=== PATIENT | male | born 1995 | race Two or more races ===

== ENCOUNTER 2022-03-01 19:24 | Inpatient (IN) | payer BC, OTHER ==
[~2022-03-01] VITALS: Ht 167.6 cm; Wt 56.7 kg
[~2022-03-01 19:24] MED LIST: PANT40TA2 PO
--- NOTE | 2022-03-01 19:33 | NUR ---
MAGUI FROM THE STREETS C/O "BEING THIRSTY" AFTER 5DAYS OF FENTANYL USE. BS 100 AT THE SCENE. PATIENT ALERT AND ORIENTED X3 AMBULATORY WITH NON LABORED BREATHING IN BED 13 ON MONITOR. AWAITING MD WOLF.
[2022-03-01] MEDS ORDERED: ONDANSETRON HCL/PF 4 MG/2 ML VIAL ONE (19:59)
[2022-03-01] MEDS ORDERED: ONDANSETRON HCL/PF - ER 4 MG/2 ML VIAL IV ONE (20:00)
[2022-03-01] MEDS ORDERED: CLONIDINE HCL 0.1MG/24H PTWK 1 EA PATCH TD SCH (20:00)
[2022-03-01] MEDS ORDERED: IV NS 0.9% 1,000 ML BAG IV ONE ×2 (20:00)
--- NOTE | 2022-03-01 20:00 | NUR ---
20G IV LINE AT [facility]. BLOOD DRAWN AND SENT TO LAB. UNABLE TO GIVE URINE AT THIS TIME
[2022-03-01 20:18] LABS: CALCIUM, SERUM 10.8 mg/dL (8.5-10.1); CREATININE 1.9 mg/dL (0.6-1.3); POTASSIUM 3.5 mmol/L (3.5-5.1)
[2022-03-01 20:23] LABS: ALBUMIN 4.6 g/dL (3.4-5.0); BILIRUBIN,DIRECT 0.2 mg/dL (0.0-0.2); BILIRUBIN,TOTAL 0.7 mg/dL (0.2-1.0); TOTAL PROTEIN, SERUM 9.9 g/dL (6.4-8.2)
[2022-03-01 20:30] LABS: BASOPHILS % (AUTO) 0.1 % (0.0-2.0); HEMATOCRIT 57 % (39-51); LYMPHOCYTES # (AUTO) 1.3 K/uL (0.8-4.8); LYMPHOCYTES % (AUTO) 6.1 % (20.0-44.0); MEAN CORPUSCULAR HGB CONC 35 g/dl (31.0-36.0); MEAN CORPUSCULAR VOLUME 79 fL (80-96); MONOCYTES % (AUTO) 9.5 % (2.0-12.0); NEUTROPHILS # (AUTO) 17.9 K/uL (1.8-8.9); NEUTROPHILS % (AUTO) 84.3 % (43.0-81.0); PLATELET COUNT (AUTO) 479 K/uL (150-450); RED BLOOD CELL COUNT(AUTO) 7.19 MIL/uL (4.5-6.0); WHITE BLOOD COUNT (AUTO) 21.2 K/uL (4.3-11.0)
[2022-03-01 20:33] LABS: HEMOGLOBIN 19.9 g/dL (13.5-17.5)
[2022-03-01 21:00] LABS: LYMPHOCYTES % (MANUAL) 10 % (16-48); MONOCYTES % (MANUAL) 9 % (0-11.0); NEUTROPHILS % (MANUAL) 81 (42-76)
--- NOTE | 2022-03-01 21:24 | NUR ---
PT STILL UNABLE TO GIVE URINE AT THIS TIME
[2022-03-01] MEDS ORDERED: PROCHLORPERAZINE EDISYLATE 10 MG/2 ML VIAL ONE (21:25)
[2022-03-01 21:30] LABS: ABG BASE EXCESS 5.5 mmol/L; ABG PCO2 47.9 mmHg (35.0-45.0); ABG PH 7.431 (7.350-7.450); ABG PO2 32.8 mmHg (75.0-100.0); COHb 0.5 % (0.5-1.5); MetHb 0.2 % (0.0-1.5); O2Hb 67.9 % (94.0-97.0); SITE, ABG Right Brachial; VENT MODE, BG ROOM AIR
[2022-03-01] MEDS ORDERED: PROCHLORPERAZINE EDISYLATE 10 MG/2 ML VIAL IVP ONE (21:30)
[2022-03-01] MEDS ORDERED: MORPHINE SULFATE INJ 2 MG/ML DISP.SYRIN IV PRN (22:00)
[2022-03-01] MEDS ORDERED: ONDANSETRON HCL/PF 4 MG/2 ML VIAL IVP PRN (22:00)
[2022-03-01] MEDS ORDERED: ACETAMINOPHEN 325 MG TABLET PO PRN (22:00)
--- NOTE | 2022-03-01 22:13 | NUR ---
PT STILL UNABLE TO GIVE URINE AT THIS TIME. REFUSES CATHETER.
--- NOTE | 2022-03-01 22:39 | NUR ---
urine collected and sent to lab
[2022-03-01] MEDS: IV NS 0.9% 1,000 ML IV SCH (22:43)
[2022-03-01 22:53] LABS: BILIRUBIN,URINE SMALL (NEGATIVE); COLOR,URINE YELLOW (YELLOW); LEUKOCYTE ESTERASE ,URINE NEGATIVE (NEGATIVE); NITRITE, URINE NEGATIVE (NEGATIVE); PROTEIN,URINE TRACE mg/dl (NEGATIVE); UGLUCOSE NEGATIVE (NEGATIVE); UROBILINOGEN,URINE 0.2 EU/dL (0.2)
--- NOTE | 2022-03-01 23:00 | NUR ---
AUTOMOTIVE GLASS INSTALLER AT BEDSIDE
--- NOTE | 2022-03-01 23:20 | NUR ---
LACTIC ACID 2.6
[2022-03-02 00:49] LABS: MAGNESIUM 2.7 mg/dL (1.8-2.4); PHOSPHORUS 5.2 mg/dL (2.5-4.9)
--- NOTE | 2022-03-02 00:49 | NUR ---
ROOM 321-2 TELE
--- NOTE | 2022-03-02 01:02 | NUR ---
REPORT GIVEN TO EDISON
[2022-03-02 02:25] VITALS: BP 135/86
--- NOTE | 2022-03-02 02:27 | NUR ---
PATIENT TRANSFERRED TO [facility] VIA ACLS
--- NOTE | 2022-03-02 02:32 | NUR ---
ADMISSION 26 y/o young male admitted for Dehydration. Patient is Alert Oriented x3, appears weak. Skin intact, no pressure injury. [place] to room, unit, staff. Education on Fall prevention, use of call light, bed alarm and nonslip socks, patient verbalized understanding. Addendum: 03/02/22 at 0344 by EDISON RIVERA RN ADMISSION NOTES CONTINUED BELOW Unable to obtained Hx. patient with intermittent confusion, lethargic.
[2022-03-02] MEDS: PANTOPRAZOLE 40 MG VIAL IV SCH ×3 (02:51→16:35)
[2022-03-02] MEDS: HEPARIN SODIUM, PORCINE 5000 UNITS/1 ML VIAL SQ SCH ×3 (02:55→20:27)
--- NOTE | 2022-03-02 02:58 | NUR ---
ANTICOAGULANT H/H 19.9/57 PLT 479 No symptoms of bleeding. Heparin injection co-signed by TABITHA Middleton
[2022-03-02] MEDS: IV NS 0.9% 1,000 ML IV SCH ×2 (03:02→07:56)
[2022-03-02 03:11] VITALS: BP 135/86
[2022-03-02 04:22] VITALS: BP 131/86
[2022-03-02 06:08] LABS: BASOPHILS % (AUTO) 0.1 % (0.0-2.0); HEMATOCRIT 46 % (39-51); HEMOGLOBIN 15.6 g/dL (13.5-17.5); LYMPHOCYTES # (AUTO) 1.8 K/uL (0.8-4.8); LYMPHOCYTES % (AUTO) 9.4 % (20.0-44.0); MEAN CORPUSCULAR HGB CONC 34 g/dl (31.0-36.0); MEAN CORPUSCULAR VOLUME 80 fL (80-96); MONOCYTES # (AUTO) 2.3 K/uL (0.1-1.30); MONOCYTES % (AUTO) 12.2 % (2.0-12.0); NEUTROPHILS # (AUTO) 14.8 K/uL (1.8-8.9); NEUTROPHILS % (AUTO) 78.3 % (43.0-81.0); PLATELET COUNT (AUTO) 330 K/uL (150-450); RED BLOOD CELL COUNT(AUTO) 5.69 MIL/uL (4.5-6.0); WHITE BLOOD COUNT (AUTO) 18.8 K/uL (4.3-11.0)
[2022-03-02 06:33] LABS: ALBUMIN 3.2 g/dL (3.4-5.0); BILIRUBIN,TOTAL 0.7 mg/dL (0.2-1.0); CALCIUM, SERUM 8.2 mg/dL (8.5-10.1); CREATININE 0.9 mg/dL (0.6-1.3); MAGNESIUM 2.2 mg/dL (1.8-2.4); POTASSIUM 3.2 mmol/L (3.5-5.1); TOTAL PROTEIN, SERUM 6.6 g/dL (6.4-8.2)
--- NOTE | 2022-03-02 07:15 | NUR ---
MS RN OPENING NOTES PATIENT IN BED, ALERT ORIENTED X 2-3. NO ACUTE DISTRESS NOTED. BREATHING UNLABORED. DENIED ANY PAIN. NEEDS ATTENDED AND ANTICIPATED. SAFETY MEASURES IN PLACE. CALL LIGHT WITHIN REACH. WILL CONTINUE TO MONITOR ACCORDINGLY
--- NOTE | 2022-03-02 07:23 | NUR ---
END OF SHIFT REPORT Patient is Alert Oriented x2, lethargic at times. Sinus Rhythm in the Tele monitor HR 63. On room air, maintaining Oxygenation 100%. IV fluids infusing. Fall precaution maintained. Bed alarm on and audible. CM/services clerk consult, patient is homeless and Hx. Fentanyl use, last use 5 days ago. Will endorse to oncoming RN.
--- NOTE | 2022-03-02 09:33 | NUR ---
HEPARIN NON ADMINISTERED AT THIS TIME , ALREADY GIVEN EARLIER NEXT DOSE TONIGHT AT 2100
[2022-03-02] MEDS ORDERED: POTASSIUM CHLORIDE 20 MEQ TAB.PRT.SR PO SCH (10:00)
[2022-03-02] MEDS ORDERED: IV NS 0.9% 1,000 ML IV PRN (10:06)
--- NOTE | 2022-03-02 12:11 | NUR ---
SS Note: SS consult requested for Fentanyl use. SW attempted to met with pt. at bedside. The pt. is alert and appears unkempt, with irritable mood & affect. Pt. requested that SW conduct interview at a later time. SW will follow up later.
[2022-03-02] MEDS: Potassium Chloride 20 MEQ in IV NS 0.9% 1,000 ML IV SCH ×2 (16:27→23:33)
--- NOTE | 2022-03-02 18:54 | NUR ---
MS RN OPENING NOTES PATIENT IN BED, ALERT ORIENTED X 2-3. NO ACUTE DISTRESS NOTED. BREATHING UNLABORED. DENIED ANY PAIN.NEEDS ATTENDED AND ANTICIPATED. SAFETY MEASURES IN PLACE. CALL LIGHT WITHIN REACH. WILL ENDORSE TO NIGHT NURSE FOR CONTINUITY OF CARE
--- NOTE | 2022-03-02 19:30 | NUR ---
AUGER SUPERVISOR OPENING NOTES RECEIVED PATIENT LYING IN BED WITH EYES CLOSED. EASY TO AROUSE. A/O X3. NO SOB OR NOTED. TOLERATING ROOM AIR WELL. NO C/O PAIN AT THIS TIME. APPEARS TO BE WEAK AND WITHDRAWN. DINNER TRAY STILL ON BEDSIDE, PATIENT HAS NOT EATEN YET. ENCOURAGED PO INTAKE. HAS RIGHT AC IV ACCESS #20G WITH KCL 20MEQ IN NS RUNNING AT 125 ML/HR. NO S/S OF INFILTRATION NOTED. SAFETY PRECAUTIONS IN PLACE. WILL CONTINUE PLAN OF CARE.
[2022-03-02 19:39] VITALS: BP 141/80
[2022-03-02 20:00] VITALS: BP 141/80
[2022-03-02 23:46] VITALS: BP 119/67
[2022-03-03] VITALS (9 sets, daily range): BP systolic 93–125; BP diastolic 53–80
--- NOTE | 2022-03-03 07:10 | NUR ---
HIDE COOKING OPERATOR CLOSING NOTES PATIENT LYING IN BED WITH EYES CLOSED. ASLEEP THROUGHOUT THE NIGHT. RESPONSIVE TO VERBAL AND TACTILE STIMULI. A/O X3. VS WNL. STABLE ON ROOM AIR. NO APPARENT DISTRESS NOTED. NO C/O PAIN AT THIS TIME. ON TELE MONITOR READING SINUS RHYTHM AT 64 BPM. HAS RIGHT AC IV ACCESS #20G WITH KCL 20MEQ IN NS RUNNING AT 125 ML/HR. INTACT, PATENT AND FLUSHING. CLEAR AND BEV URINE OUTPUT OF 600 ML. SAFETY PRECAUTIONS IN PLACE: BED LOW AND LOCKED, BED ALARM ON, SIDE RAILS UP X2, CALL LIGHT WITHIN REACH.
--- NOTE | 2022-03-03 07:35 | NUR ---
RN OPENING NOTE PATIENT RECEIVED IN BED SLEEPING, ABLE TO RESPONDS ALL STIMULI. IN NO ACUTE DISTRESS NOTED. RESPIRATORY EVEN AND UNLABORED ON ROOM. SKIN IS WARM TO TOUCH, KEEP CLEAN/DRY, INTACT IV SITE. KEPT ELEVATED HOB FOR ENSURE AIRWAY AND ASPIRATION PRECAUTION, ALSO LOWEST POSITION OF THE BED, S/R UP X 2, ALL SAFETY PRECAUTION APPLIED. CALL LIGHT WITHIN REACH, WILL CONTINUE TO MONITOR.
[2022-03-03] MEDS: Potassium Chloride 20 MEQ in IV NS 0.9% 1,000 ML IV SCH ×2 (07:57→16:35)
[2022-03-03] MEDS: PANTOPRAZOLE 40 MG VIAL IV SCH (09:23)
[2022-03-03] MEDS: HEPARIN SODIUM, PORCINE 5000 UNITS/1 ML VIAL SQ SCH ×2 (09:26→21:00)
--- NOTE | 2022-03-03 10:44 | NUR ---
SW attempted to interview pt. Pt. would not answer questions and would nod "yes" to every question. SW will come back at a later time once pt. is more oriented.
[2022-03-03 10:54] LABS: BASOPHILS % (AUTO) 0.3 % (0.0-2.0); EOSINOPHILS % (AUTO) 0.3 % (0.0-6.0); HEMATOCRIT 39 % (39-51); HEMOGLOBIN 13.1 g/dL (13.5-17.5); LYMPHOCYTES # (AUTO) 3.2 K/uL (0.8-4.8); LYMPHOCYTES % (AUTO) 26.7 % (20.0-44.0); MEAN CORPUSCULAR HGB CONC 34 g/dl (31.0-36.0); MEAN CORPUSCULAR VOLUME 82 fL (80-96); MONOCYTES # (AUTO) 1.2 K/uL (0.1-1.30); MONOCYTES % (AUTO) 10.5 % (2.0-12.0); NEUTROPHILS # (AUTO) 7.3 K/uL (1.8-8.9); NEUTROPHILS % (AUTO) 62.2 % (43.0-81.0); PLATELET COUNT (AUTO) 235 K/uL (150-450); RED BLOOD CELL COUNT(AUTO) 4.74 MIL/uL (4.5-6.0); WHITE BLOOD COUNT (AUTO) 11.8 K/uL (4.3-11.0)
[2022-03-03 11:24] LABS: ALBUMIN 2.7 g/dL (3.4-5.0); BILIRUBIN,TOTAL 0.5 mg/dL (0.2-1.0); CALCIUM, SERUM 7.9 mg/dL (8.5-10.1); CREATININE 0.5 mg/dL (0.6-1.3); POTASSIUM 4.1 mmol/L (3.5-5.1); TOTAL PROTEIN, SERUM 5.6 g/dL (6.4-8.2)
--- NOTE | 2022-03-03 13:47 | NUR ---
SS Note: SW followed-up with pt. regarding substance abuse and homelessness. Pt. is still refusing to answer questions. Pt. would just nod "yes" to every question that is being asked. SW provided and educated pt. with addiction and skilled nursing resources. SW left resources at bedside. Resources Provided: [facility]: [address] [place] [address] Intake hours: 5:45am9:00am, walk-ins Sunday, Sunday, [facility]: [address] [place] [address] Intake hours: 5:45am12:30pm, Sunday and [facility]: [address] [place] [address] Intake hours: 8:00am2:00pm, Sunday through Sunday Year-round shelters: [place] [address], [place] [address] ; [facility] [place] [address] [place] [address]; [facility] [id number] [facility] [address] Winter Shelters: Dima Dial Provider: [facility] [place] Address: [address] [place], [address] # of Beds: 47 Population Served: [facility] 6 | [facility] Yesenia Cortez [place] Provider: [facility] Address: [address], [address] # of Beds: 66 Population Served: [facility] Drug Response Dx [place] Provider: First to Serve Address: [address] [facility], [address] # of Beds: 56 Population Served: [facility] Kip [place] Provider: /[facility] Address: [address] [facility], [address] # of Beds: 49 Population Served: [facility] 8 | [facility] Provider: First to Serve Address: [address] [place] [address], [address] # of Beds: 37 Population Served: [facility] Hy[facility]: [facility]: [address] [place] ; [facility] [address] [facility] ; [facility] [address], [place] . Food Resources: [place] [facility] at [facility]- [address] [place]; Meet Each Need with Dignity ([facility]) [address] [facility]; [facility] [address] [facility]; [facility] [address] [facility]. Mental Health resources provided: [facility] [address] [place], [place] [address] ; [facility] [address] [facility] [address], [place], [place] [id number] ; [facility] [address] [place], [place] [id number] ; [facility] [address] [place], [place] [address] Healthcare Clinics: [facility] [address] [facility], [address] [place]. [place] ; [facility] [address] [facility] [address] [place] [id number]; [facility] [place] [address] [facility]. [place] [phone] Counseling--Outpatient [facility] [place] [address] [facility], [place] [address] (Specializes in in-depth psychotherapy for emotional distress: anxiety, depression, interpersonal conflicts, life transitions, childhood abuse) [facility] [address] [place], [place] [phone] (Assist with solving problem marital difficulties, separation & divorce, aging parents, & grief, chronic & terminal illness) [facility] [address] [place] [address] (Deal with loss & grief, anxiety, marital difficulties) Homebound/Mental Health Services [address] [facility], [address] [place], [place] [address] (Provide in-home mental services to people who are incapable of leaving their homes) [facility] Elderly Senior Service/Resource Center [address] [place] [address] [facility] [address] [facility]. [place], [place] [phone] PSYCHIATRIC OUTPATIENT SERVICES [facility] Partial Hospitalization and Intensive Outpatient Program (Managed Care and [place] Only)[address] [facility] [phone] [facility] Partial Hospitalization and Outpatient [id number] [place] [address] [place], [place] [phone] [facility] [place] [address] [facility]. [address] [place], [place] [phone] [facility] Partial Hospitalization and Outpatient [id number] [place], [phone] Substance Abuse resources provided included: [facility] Substance Abuse Self-Helpline (SAS) ; [facility] [address] [facility]. [place] [phone] ; [facility] [address] [facility] [address] ; [facility] [address] [place] [facility] [address] ; [facility] [address] [facility] [address] ; [facility] 8970 [facility] [address] ; [facility] 909 [facility]. [facility] [phone] ; [facility] Substance Abuse Helpline(SAS)-[facility] ; [facility] Family Counseling ; [facility] [place]; [facility] [place]; [facility] [place]; [facility] [address]; [facility] [place]; [facility] [place]; [facility] [place]; [facility], [facility]. [place]; Alcoholics Anonymous -SFV; Ken ; Marijuana Anonymous -SFV; Narcotics Anonymous [email or web address].na.org;
[2022-03-03] MEDS: PANTOPRAZOLE 40 MG TABLET.DR PO SCH (16:30)
--- NOTE | 2022-03-03 18:31 | NUR ---
RN CLOSE NOTE PATIENT IN BED SLEEPING, IN NO ACUTE DISTRESS OBSERVED. RESPIRATION EVEN AND UNLABORED ON ROOM AIR. SKIN IS WARM TO TOUCH KEEP CLEAN//DRY. INTACT IV SITE AND RUNNING IVF AT 125 ML/HR. KEPT ELEVATED HOB FOR ENSURE AIRWAY AND ASPIRATION PRECAUTION. ALSO LOWEST POSITION OF THE BED FOR SAFETY. CALL LIGHT WITHIN REACH, WILL ENDORSE TO RASPER MACHINE OPERATOR.
--- NOTE | 2022-03-03 20:00 | NUR ---
rn notes pt refused heparin sub@.tried 3x.explained the benefits/action of the meds.
--- NOTE | 2022-03-03 20:02 | NUR ---
RN OPENING NOTE PATIENT RECEIVED IN BED SLEEPING IN ROOM AIR CARA WELL.NO SIGN SOB/DISTRESS NOTED. IV SITE INTACT /PATENT. SAFETY PRECAUTION APPLIED.LOW BED POSITION IN LOCKED BOTH SIDERAILS UP.CALL LIGHT WITHIN REACH, WILL CONTINUE TO MONITOR.
[2022-03-04] MEDS: Potassium Chloride 20 MEQ in IV NS 0.9% 1,000 ML IV SCH ×2 (00:25→08:41)
[2022-03-04 03:56] VITALS: BP 112/77
[2022-03-04 04:59] VITALS: BP 101/58
[2022-03-04 05:01] VITALS: BP 99/65
--- NOTE | 2022-03-04 07:00 | NUR ---
BLOCK PAVER OPENING NOTES PATIENT IN BED, A/O X 4, ABLE TO MAKE NEEDS KNOWN. TOLERATING WELL ON ROOM AIR WITH NO S/S RESPIRATORY DISTRESS. BREATHING EVEN AND UNLABORED WITH NO COMPLAINT OF PAIN OR DISCOMFORT AT THIS TIME. TELE MONITOR READING NSR 68. R AC #20 CLEAN, INTACT, AND FLUSHING WELL WITH IV NS W/ 20 MEQ K @ 125 ML/HR. HOB ELEVATED FOR ASPIRATION PRECAUTIONS. SAFETY MEASURES IN PLACE: BED IN LOWEST LOCKED POSITION, SIDE RAILS UP X 2, CALL LIGHT WITHIN REACH. WILL CONTINUE TO MONITOR.
--- NOTE | 2022-03-04 07:26 | NUR ---
RN CLOSE NOTE PATIENT IN BED SLEEPING,ON R/A CARA WELL.NO SOB/DISTRESS NOTED.RESPIRATION EVEN AND UNLABORED.IV SITE RAC #20G INTAC/PATENT.ALL NEEDS ATTENDED.SAFETY PRECAUTION APPLY.BED LOWEST POSITION/LUCKED.CALL LIGHT WITHIN REACH, WILL ENDORSE TO PIN STICKER.
[2022-03-04 08:00] VITALS: BP 134/73
[2022-03-04] MEDS: PANTOPRAZOLE 40 MG TABLET.DR PO SCH (08:08)
[2022-03-04] MEDS: HEPARIN SODIUM, PORCINE 5000 UNITS/1 ML VIAL SQ SCH (08:29)
--- NOTE | 2022-03-04 10:15 | NUR ---
MORTGAGE LENDER ELOPEMENT NOTES INFORMED BY SAUNDRA AT 1015 PATIENT NOT PRESENT IN ROOM OR ELSEWHERE IN UNIT. PATIENT WITH NO CELL PHONE TO BE ABLE TO CONTACT HIM TO ADVISE HIM TO RETURN. PATIENT HAD REMOVED HIS IV LINE AND TELE BOX AND ELOPED FROM UNIT. PATIENT'S FATHER KIRAN CEBALLOS NOTIFIED OF ELOPEMENT. Addendum: 03/04/22 at 8 by XANDER LEVY RN INCIDENT REPORT GENERATED FOR EVENT.
== END 2022-03-04 10:15 | disposition left against medical advice (07) | DRG 917 ==
LOC: ER 19:31 → TELE 03-02 00:51
PROVIDERS: ADMIT Internal Medicine; ATTEND Student in an Organized Health Care Education/Training Program
DX: T40.411A Poisoning by fentanyl or fentanyl analogs, accidental (unintentional), initial encounter (principal); G92.9 Unspecified toxic encephalopathy; N17.0 Acute kidney failure with tubular necrosis; M62.82 Rhabdomyolysis; E44.0 Moderate protein-calorie malnutrition; Y92.9 Unspecified place or not applicable; E86.0 Dehydration; Z20.822 Contact with and (suspected) exposure to COVID-19; Z59.00 Homelessness unspecified; F17.200 Nicotine dependence, unspecified, uncomplicated; F19.10 Other psychoactive substance abuse, uncomplicated; D72.829 Elevated white blood cell count, unspecified; D75.838 Other thrombocytosis; D75.1 Secondary polycythemia; R74.01 Elevation of levels of liver transaminase levels; E87.6 Hypokalemia; E11.9 Type 2 diabetes mellitus without complications; E88.09 Other disorders of plasma-protein metabolism, not elsewhere classified
CPT/HCPCS: 36415; 36600; 76700-TC; 80048-TC; 80053-TC; 80076-TC; 82550-TC; 82553; 83605-TC; 83690-TC; 83735-TC; 84100-TC; 85025-TC; 87040-TC; C9113; C9803; G0378; J0780; J1644; J2405; J3480; J7030

== ENCOUNTER 2022-07-23 09:13 | Emergency (ER) | payer BC ==
[~2022-07-23] VITALS: Ht 172.7 cm; Wt 64.4 kg
[2022-07-23 09:15] VITALS: BP 114/90
--- NOTE | 2022-07-23 09:16 | NUR ---
DR MAURER ASSESSING THE PATIENT
[2022-07-23] MEDS ORDERED: NALO4SPR BNOSTRILS (09:19)
--- NOTE | 2022-07-23 09:26 | NUR ---
SEEN AND EVALUATED BY INEZ. PT WAS PROVIDED W/ REFFERALS FOR DETOX. SECURITY CALLED AND PATIENT WAS ESCORTED OUT. REFUSED TO SIGN ACI.
== END 2022-07-23 09:32 | disposition home or self-care (01) ==
LOC: ER 09:17
DX: F11.10 Opioid abuse, uncomplicated (principal); F17.200 Nicotine dependence, unspecified, uncomplicated; Z59.00 Homelessness unspecified; Z79.899 Other long term (current) drug therapy

== ENCOUNTER 2022-07-25 19:28 | Emergency (ER) | payer SELFPAY ==
[~2022-07-25] VITALS: Ht 172.7 cm; Wt 54.4 kg
[~2022-07-25 19:28] MED LIST changes: +NALO4SPR BNOSTRILS
[2022-07-25] MEDS ORDERED: IBUP-1955 PO (21:25)
[2022-07-25] MEDS ORDERED: IBUPROFEN 600 MG TABLET PO ONE (21:30)
[2022-07-25 23:26] VITALS: BP 131/80
== END 2022-07-25 23:26 | disposition home or self-care (01) ==
LOC: ER 19:33
DX: S39.012A Strain of muscle, fascia and tendon of lower back, initial encounter (principal); Z59.00 Homelessness unspecified; Z79.899 Other long term (current) drug therapy; W01.0XXA Fall on same level from slipping, tripping and stumbling without subsequent striking against object, initial encounter; Y93.89 Activity, other specified; Y92.89 Other specified places as the place of occurrence of the external cause; Y99.8 Other external cause status
CPT/HCPCS: 72074-TC; 72110-TC

== ENCOUNTER 2023-04-02 11:00 | Emergency (ER) | payer MEDICAID ==
[~2023-04-02] VITALS: Ht 167.6 cm; Wt 71.7 kg
[~2023-04-02 11:00] MED LIST changes: +IBUP-1955 PO
[2023-04-02 12:04] LABS: BASOPHILS % (AUTO) 0.2 % (0.0-2.0); HEMATOCRIT 54 % (39-51); HEMOGLOBIN 18.3 g/dL (13.5-17.5); LYMPHOCYTES # (AUTO) 1.1 K/uL (0.8-4.8); LYMPHOCYTES % (AUTO) 9.7 % (20.0-44.0); MEAN CORPUSCULAR HGB CONC 34 g/dl (31.0-36.0); MEAN CORPUSCULAR VOLUME 81 fL (80-96); MONOCYTES # (AUTO) 0.7 K/uL (0.1-1.30); MONOCYTES % (AUTO) 5.6 % (2.0-12.0); NEUTROPHILS % (AUTO) 84.5 % (43.0-81.0); PLATELET COUNT (AUTO) 276 K/uL (150-450); RED BLOOD CELL COUNT(AUTO) 6.69 MIL/uL (4.5-6.0); WHITE BLOOD COUNT (AUTO) 11.8 K/uL (4.3-11.0)
[2023-04-02 12:15] LABS: CALCIUM, SERUM 9.7 mg/dL (8.5-10.1); CREATININE 0.8 mg/dL (0.6-1.3)
[2023-04-02 12:28] LABS: BILIRUBIN,DIRECT 0.2 mg/dL (0.0-0.2); BILIRUBIN,TOTAL 0.7 mg/dL (0.2-1.0); TOTAL PROTEIN, SERUM 8.2 g/dL (6.4-8.2)
[2023-04-02] MEDS ORDERED: BUPR1FIL SL (13:30)
[2023-04-02] MEDS ORDERED: NALO4SPR BNOSTRILS (13:30)
[2023-04-02] MEDS ORDERED: ONDANSETRON 4 MG TAB.RAPDIS ONE (13:48)
[2023-04-02] MEDS ORDERED: ONDANSETRON 4 MG TAB.RAPDIS SL ONE (14:00)
[2023-04-02 14:44] VITALS: BP 122/81
[2023-04-02] MEDS ORDERED: ONDA4TAB5 PO (17:10)
== END 2023-04-02 14:44 | disposition home or self-care (01) ==
LOC: ER 12:00
DX: F11.10 Opioid abuse, uncomplicated (principal); R10.9 Unspecified abdominal pain; Z59.00 Homelessness unspecified; Z79.899 Other long term (current) drug therapy
CPT/HCPCS: 99284; 74176; 85025; 80048; 83690; 80076; 36415; Q0162

== ENCOUNTER 2023-04-02 15:18 | Emergency (ER) | payer MEDICAID ==
[~2023-04-02] VITALS: Ht 170.2 cm; Wt 65.8 kg
[~2023-04-02 15:18] MED LIST changes: +BUPR1FIL SL
--- NOTE | 2023-04-02 15:34 | NUR ---
WAS DISCHARGED IN ER THIS NOON, CAME BACK IN THE WAITING ROOM FOR NAUSEA AND VOMITING . PATIENT IS AMBULATORY AOX4 , NOTIFIED MD FOR REEVALUATION.
[2023-04-02] MEDS ORDERED: BUPRENORPHINE HCL 2 MG TAB.SUBL SL ONE (16:05)
[2023-04-02] MEDS ORDERED: ONDANSETRON 4 MG TAB.RAPDIS ONE (16:05)
[2023-04-02] MEDS: BUPRENORPHINE HCL 2 MG TAB.SUBL SL ONE (16:08)
[2023-04-02] MEDS: ONDANSETRON 4 MG TAB.RAPDIS SL ONE (16:24)
[2023-04-02] MEDS ORDERED: ONDA4TAB5 PO (17:10)
[2023-04-02 17:53] VITALS: BP 128/75
--- NOTE | 2023-04-02 17:53 | NUR ---
Patient discharged to home in stable condition. Written and verbal after care instructions given. Patient verbalizes understanding of instruction.
== END 2023-04-02 17:54 | disposition home or self-care (01) ==
LOC: ER 15:47
DX: F11.13 Opioid abuse with withdrawal (principal); R11.10 Vomiting, unspecified; Z59.00 Homelessness unspecified
CPT/HCPCS: 99283; Q0162